=== PATIENT | male | born 1980 | race Caucasian/White ===

== ENCOUNTER 2021-08-12 02:35 | Emergency (ER) | payer OTHER ==
[~2021-08-12] VITALS: Ht 177.8 cm; Wt 81.7 kg
[2021-08-12] MEDS ORDERED: [UNRECOGNIZED DRUG - OTHER] PO (02:41)
[2021-08-12] MEDS ORDERED: OIL OF OREGAN1500 MG PO (02:41)
[2021-08-12] MEDS ORDERED: [UNRECOGNIZED DRUG - OTHER] MC (02:42)
[2021-08-12 03:53] LABS: ABSOLUTE NEUTROPHILS 3.3 thou/uL (1.4-8.2); BASOPHILS 0.5 % (0.0-2.0); EOSINOPHILS 3.8 % (0.0-3.0); HEMATOCRIT 45.1 % (42.0-52.0); HEMOGLOBIN 15.9 gm/dL (14.0-18.0); LYMPHOCYTES 37.8 % (24.0-44.0); MCH 30.9 pg (26.0-34.0); MCHC 35.1 g/dL (28.0-37.0); MCV 87.8 fL (80.0-100.0); MONOCYTES 8.3 % (1.0-8.0); PLATELET COUNT 212 thou/uL (150-400); POLYS 49.6 % (36.0-66.0); RBC 5.14 mil/uL (4.50-6.00); RDW 12.9 % (10.5-14.5); WBC 6.7 thou/uL (4.0-11.0)
[2021-08-12 03:56] LABS: CALCIUM 8.5 mg/dL (8.5-10.1); CREATININE 0.9 mg/dL (0.7-1.3)
[2021-08-12 03:57] LABS: POTASSIUM 3.7 mmol/L (3.5-5.1)
[2021-08-12 04:39] VITALS: BP 112/78
--- NOTE | 2021-08-12 13:00 | EKG ---
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
== END 2021-08-12 04:39 | disposition home or self-care (01) ==
LOC: ER 02:35
PROVIDERS: Emergency Medicine
DX: R06.02 Shortness of breath (principal); Z20.822 Contact with and (suspected) exposure to COVID-19; Z79.899 Other long term (current) drug therapy